=== PATIENT | female | born 1945 | race African-American/Black ===

== ENCOUNTER 2017-01-11 10:19 | Day surgery (SDC) | payer MEDICARE ==
[2017-01-11] MEDS ORDERED: DILAUDID IV PRN (10:40)
[2017-01-11] MEDS ORDERED: ZOFRAN IV PRN (10:40)
[2017-01-11] MEDS ORDERED: ANCEF/STERILE WATER 2 GM/20 ML IV NR (11:00)
[2017-01-11] MEDS ORDERED: LACTATED RINGERS 1,000 ML IV SCH ×2 (11:00)
[2017-01-11] MEDS ORDERED: VERSED IV NR (11:00)
--- NOTE | 2017-01-11 11:09 | Anesthesia Day of Surgery ---
Anesthesia Day of Surgery - Day of Surgery Patient Examined: Yes Patient H&P Reviewed: Yes Patient is NPO: Yes
--- NOTE | 2017-01-11 11:11 | Anesthesia Consultation ---
Anesthesia Consult and Med Hx Date of service: 01/11/17 - Airway Anesthetic Teeth Evaluation: Crowns ROM Head & Neck: Adequate Mental/Hyoid Distance: Adequate Mallampati Class: Class III Intubation Access Assessment: Probably Good - Pulmonary Exam CTA: Yes - Cardiac Exam Cardiac Exam: RRR - Pre-Operative Health Status ASA Pre-Surgery Classification: ASA2 Proposed Anesthetic Plan: General - Pulmonary Hx Smoking: No Hx Asthma: Yes (MILD) SOB: No Hx Sleep Apnea: No - Cardiovascular System Hx Hypertension: Yes (HL) - Central Nervous System Hx Back Pain: Yes (CHRONIC BACK PAIN) Hx Psychiatric Problems: No - Endocrine Hx Insulin Dependent Diabetes: No - Other Systems Hx Alcohol Use: No Hx Substance Use: No Hx Cancer: No
[2017-01-11] MEDS ORDERED: SUBLIMAZE ONE (11:37)
[2017-01-11] MEDS ORDERED: DIPRIVAN 10 MG/ML IV ONE (11:37)
[2017-01-11] MEDS ORDERED: ZOFRAN ONE (11:38)
[2017-01-11] MEDS ORDERED: DECADRON ONE (11:38)
[2017-01-11] MEDS ORDERED: XYLOCAINE MPF 2% ONE (11:38)
--- NOTE | 2017-01-11 12:03 | Post Operative Note ---
Pre-op diagnosis: l ureteral stone Post-op diagnosis: same Findings: as above Procedure: left eswl Anesthesia: MIKE Surgeon: VERENICE FERGUSON Estimated blood loss: none Pathology: none Condition: stable Disposition: PACU
--- NOTE | 2017-01-11 12:04 | Discharge Summary ---
Short Stay Discharge Plan Activity: other (no straining ) Weight Bearing Status: Full Weight Bearing Diet: regular Special Instructions: other (straini urine ..inc fluids ) Follow up with: PARI FARRELL MD [Primary Care Provider] - 7 Days TUNG PRESCOTT MD [Staff Physician] - 7 Days
--- NOTE | 2017-01-11 12:51 | Operative Report ---
PREOPERATIVE DIAGNOSES: Left 7-8 mm ureteropelvic junction stone. POSTOPERATIVE DIAGNOSES: Left 7-8 mm ureteropelvic junction stone. PROCEDURE: In situ left lithotripsy. SURGEON: Anders Snell MD/ ANESTHESIA: General. FINDINGS: This is a woman with a history of stone and some pain. She was not in much pain now. She now presents for lithotripsy. She initially saw Dr. Kumari and ___ and now presents for lithotripsy. DESCRIPTION OF PROCEDURE: The patient was brought to lithotripsy unit and placed on the operating table. Stone was easily localized in both the AP and oblique image. Shocks were begun at 1 kV and increased to maximum of 6 kV. A total of 2500 shocks were given. The patient tolerated the procedure well. If this is not fragment or pass, she will need ureteroscopy with laser. This was explained to her. She has ___ brought to recovery in stable condition. JOB# [id number] MARJ/ANDREW
--- NOTE | 2017-01-11 14:20 | Post Anesthesia Evaluation ---
- Post Anesthesia Evaluation Patient Participated: Yes Airway Patent: Yes Stable Respiratory Function: Yes Nausea/Vomiting: No Temp > 96.8F: Yes Pain Manageable: Yes Adequeate Hydration: Yes Anesthesia Complications: No
[2017-01-11] MEDS ORDERED: NORCO 5/325 PO ONE (14:42)
[2017-01-11 15:01] VITALS: BP 140/70
== END 2017-01-11 15:24 | disposition home or self-care (01) ==
LOC: OR 10:19
PROVIDERS: ATTEND Urology
DX: N20.1 Calculus of ureter (principal); J45.909 Unspecified asthma, uncomplicated; I10 Essential (primary) hypertension; G89.29 Other chronic pain; M54.9 Dorsalgia, unspecified; Z79.899 Other long term (current) drug therapy
CPT/HCPCS: 50590; J0690; J1100; J1170; J2250; J2405; J2704; J3010; J7120

== ENCOUNTER 2017-03-30 09:43 | Outpatient (CLI) | payer MEDICARE ==
--- NOTE | 2017-03-30 10:15 | Mammography Report ---
Bilateral mammogram: Compared to 07/03/13. CAD study utilized. Findings: Scattered minimal parenchyma bilaterally. No mass or microcalcification. Benign axillary nodes. Impression: Benign findings. Annual followup recommended. BI-RADS CATEGORY: 2 = Benign ACR BI-RADS MAMMOGRAPHIC CODES: 0 = Needs additional imaging evaluation; 1 = Negative; 2 = Benign; 3 = Probably benign; 4 = Suspicious; 5 = Malignant; 6 = Known biopsy-proven malignancy COMMENT: 1. Dense breast tissue, i.e., adenosis, fibrocystic changes, etc., may obscure an underlying neoplasm. 2. Approximately 10% of cancers are not detected with mammography. 3. A negative mammography report should not delay biopsy if a clinically suspicious mass is present. COMMENT: Patient follow-up letters are generated in [employer].
== END 2017-03-30 09:44 | disposition home or self-care (01) ==
LOC: MAMMO 09:43
PROVIDERS: ATTEND Internal Medicine Geriatric Medicine
DX: Z12.31 Encounter for screening mammogram for malignant neoplasm of breast (principal)
CPT/HCPCS: 77067; G0202